=== PATIENT | female | born 1980 | race Caucasian/White ===

== ENCOUNTER 2018-07-09 19:27 | Observation (INO) | payer OTHER ==
[2018-07-09] MEDS ORDERED: SODIUM CHLORIDE 0.9% 1,000 ML IV STA ×2 (19:50)
[2018-07-09] MEDS ORDERED: LORazepam 1 MG TAB PO STA (19:50)
--- NOTE | 2018-07-09 19:53 | ED ---
SOB HPI - General Source: EMS, RN notes reviewed, old records reviewed Mode of arrival: EMS Limitations: no limitations - History of Present Illness MD Complaint: shortness of breath <Monserrat Iniguez - Last Filed: 07/09/18 23:01> <Silvia Rowley P - Last Filed: 07/10/18 03:08> - General Chief Complaint: Shortness of Breath Stated Complaint: Anxiety Time Seen by Provider: 07/09/18 19:32 - History of Present Illness Initial Comments: Jessa is a 37-year-old female who presents emergency department today with sudden onset of shortness of breath and heart racing. She has history of anxiety but is never had symptoms like this or a panic attack. Patient states that she feels like it's [place] is a deep breath. She is shaking. Patient states that she has never had any heart problems before. She denies any fevers or chills cough congestion. Patient reports symptoms started when she was sitting and watching TV. She denies any exacerbating symptoms. Patient denies family history of heart disease. (Monserrat Iniguez) - Related Data Home Medications Medication Instructions Recorded Confirmed No Known Home Medications 07/09/18 07/09/18 Allergies Allergy/AdvReac Type Severity Reaction Status Date / Time No Known Allergies Allergy Verified 07/09/18 19:50 Review of Systems ROS Other: All systems not noted in ROS Statement are negative. <Monserrat Iniguez - Last Filed: 07/09/18 23:01> ROS Other: All systems not noted in ROS Statement are negative. <Silvia Rowley P - Last Filed: 07/10/18 03:08> ROS Statement: Those systems with pertinent positive or pertinent negative responses have been documented in the HPI. Past Medical History Past Medical History: No Reported History History of Any Multi-Drug Resistant Organisms: None Reported Past Surgical History: Section Additional Past Surgical History / Comment(s): D&C. Past Psychological History: No Psychological Hx Reported Smoking Status: Current some day smoker Past Alcohol Use History: Occasional Past Drug Use History: None Reported <Monserrat Iniguez - Last Filed: 07/09/18 23:01> General Exam Limitations: no limitations General appearance: alert, in no apparent distress Head exam: Present: atraumatic, normocephalic, normal inspection Eye exam: Present: normal appearance, PERRL, EOMI. Absent: scleral icterus, c onjunctival injection, periorbital swelling ENT exam: Present: normal exam, mucous membranes moist Neck exam: Present: normal inspection. Absent: tenderness, meningismus, lymphadenopathy Respiratory exam: Present: normal lung sounds bilaterally. Absent: respiratory distress, wheezes, rales, rhonchi, stridor Cardiovascular Exam: Present: regular rate, normal rhythm, normal heart sounds. Absent: systolic murmur, diastolic murmur, rubs, gallop, clicks GI/Abdominal exam: Present: soft, normal bowel sounds. Absent: distended, tenderness, guarding, rebound, rigid Extremities exam: Present: normal inspection, full ROM, normal capillary refill. Absent: tenderness, pedal edema, joint swelling, calf tenderness Back exam: Present: normal inspection Neurological exam: Present: alert, oriented X3, CN II-XII intact Psychiatric exam: Present: normal affect, normal mood Skin exam: Present: warm, dry, intact, normal color. Absent: rash <Monserrat Iniguez - Last Filed: 07/09/18 23:01> - General Exam Comments Initial Comments: 37-year-old female. Alert and oriented. No distress. 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 ] Respiratory 26 H 32 H Rate Blood Pressure 147/99 O2 Sat by Pulse 100 Oximetry 07/09/18 07/09/18 07/10/18 22:00 22:19 02:51 Temperature 98.1 F Pulse Rate 124 H 120 H 97 Pulse Rate [ Offset [employer] Operator ] Respiratory 20 19 Rate Blood Pressure 131/90 131/93 O2 Sat by Pulse 98 100 Oximetry Medical Decision Making - Lab Data Result diagrams: 07/09/18 20:20 07/09/18 20:20 - Radiology Data Radiology results: report reviewed <Monserrat Iniguez - Last Filed: 07/09/18 23:01> - Lab Data Result diagrams: 07/09/18 20:20 07/09/18 20:20 <Silvia Rowley - Last Filed: 07/10/18 03:08> - Medical Decision Making Patient is a 37-year-old female who presents respiratory for evaluation for sudden onset of chest pain shortness of breath. Patient's EKG shows sinus tachycardia. While in the emergency department she continued of a high heart rate of 120 beats were minute minimum. EKG showed sinus tach cardiology as normal EKG. Her initial troponin is negative. She does complain of some discomfort in her chest as well. At this time her d-dimer did come back slightly elevated CT [place] chest was completed and negative for PE. There is evidence of a right-sided pleural reaction. She has no cough or other associated symptoms. I reevaluated the Patient after initial thinking is related to anxiety. She states that symptoms persist after 0.5 mg of Ativan. He also given Patient a breathing treatment helped him this would improve her symptoms. At this time Patient will be admitted for continued chest pain, tachycardia and will repeat peak troponin levels. All questions answered. (Monserrat Iniguez) I was available for consultation in the emergency department. The history and physical exam were done by the midlevel provider. I was consulted for this patient's care. I reviewed the case with the midlevel provider and based on their presentation of the patient, I agree with the assessment, medical decision making and plan of care as documented. Chart was dictated using [employer] dictation software. Attempts were made to correct any dictation errors however some typographical errors may persist. (Silvia Rowley) - Lab Data Lab Results 07/09/18 07/09/18 07/09/18 Range/Units 20:20 20:20 20:20 WBC 13.3 H (3.8-10.6) k/uL RBC 5.22 (3.80-5.40) m/uL Hgb 15.0 (11.4-16.0) gm/dL Hct 45.9 (34.0-46.0) % MCV 88.0 (80.0-100.0) fL MCH 28.7 (25.0-35.0) pg MCHC 32.6 (31.0-37.0) g/dL RDW 17.5 H (11.5-15.5) % Plt Count 370 (150-450) k/uL Neutrophils % 77 % Lymphocytes % 16 % Monocytes % 5 % Eosinophils % 1 % Basophils % 0 % Neutrophils # 10.3 H (1.3-7.7) k/uL Lymphocytes # 2.1 (1.0-4.8) k/uL Monocytes # 0.7 (0-1.0) k/uL Eosinophils # 0.1 (0-0.7) k/uL Basophils # 0.0 (0-0.2) k/uL Anisocytosis Slight PT 10.4 (9.0-12.0) sec INR 1.0 (<1.2) APTT 24.1 (22.0-30.0) sec D-Dimer 0.67 H (<0.60) mg/L FEU Sodium 141 (137-145) mmol/L Potassium 4.4 (3.5-5.1) mmol/L Chloride 108 H (98-107) mmol/L Carbon Dioxide 19 L (22-30) mmol/L Anion Gap 14 mmol/L BUN 11 (7-17) mg/dL Creatinine 0.69 (0.52-1.04) mg/dL Est GFR (CKD-EPI)AfAm >90 (>60 ml/min/1.73 sqM) Est GFR (CKD-EPI)NonAf >90 (>60 ml/min/1.73 sqM) Glucose 94 (74-99) mg/dL Calcium 11.1 H (8.4-10.2) mg/dL Magnesium 1.8 (1.6-2.3) mg/dL Total Bilirubin 1.0 (0.2-1.3) mg/dL AST 25 (14-36) U/L ALT 27 (9-52) U/L Alkaline Phosphatase 94 (38-126) U/L Troponin I (0.000-0.034) ng/mL Total Protein 8.5 H (6.3-8.2) g/dL Albumin 5.1 H (3.5-5.0) g/dL TSH (0.465-4.680) mIU/L HCG, Qual 07/09/18 07/09/18 Range/Units 20:20 20:20 WBC (3.8-10.6) k/uL RBC (3.80-5.40) m/uL Hgb (11.4-16.0) gm/dL Hct (34.0-46.0) % MCV (80.0-100.0) fL MCH (25.0-35.0) pg MCHC (31.0-37.0) g/dL RDW (11.5-15.5) % Plt Count (150-450) k/uL Neutrophils % % Lymphocytes % % Monocytes % % Eosinophils % % Basophils % % Neutrophils # (1.3-7.7) k/uL Lymphocytes # (1.0-4.8) k/uL Monocytes # (0-1.0) k/uL Eosinophils # (0-0.7) k/uL Basophils # (0-0.2) k/uL Anisocytosis PT (9.0-12.0) sec INR (<1.2) APTT (22.0-30.0) sec D-Dimer (<0.60) mg/L FEU Sodium (137-145) mmol/L Potassium (3.5-5.1) mmol/L Chloride (98-107) mmol/L Carbon Dioxide (22-30) mmol/L Anion Gap mmol/L BUN (7-17) mg/dL Creatinine (0.52-1.04) mg/dL Est GFR (CKD-EPI)AfAm (>60 ml/min/1.73 sqM) Est GFR (CKD-EPI)NonAf (>60 ml/min/1.73 sqM) Glucose (74-99) mg/dL Calcium (8.4-10.2) mg/dL Magnesium (1.6-2.3) mg/dL Total Bilirubin (0.2-1.3) mg/dL AST (14-36) U/L ALT (9-52) U/L Alkaline Phosphatase (38-126) U/L Troponin I <0.012 (0.000-0.034) ng/mL Total Protein (6.3-8.2) g/dL Albumin (3.5-5.0) g/dL TSH 3.820 (0.465-4.680) mIU/L HCG, Qual Not Detected - Radiology Data CT shows no evidence of pulmonary embolism, minimal pleural reaction at the ri t posterior lung base. (Monserrat Iniguez) Disposition Is patient prescribed a controlled substance at d/c from ED?: No Time of Disposition: 23:04 <Monserrat Iniguez - Last Filed: 07/09/18 23:01> <Silvia Rowley P - Last Filed: 07/10/18 03:08> Clinical Impression: Chest pain, Tachycardia, Shortness of breath at rest Disposition: ADMITTED IP TO THIS [facility] Condition: Stable
[2018-07-09 20:51] LABS: Anisocytosis Slight; Basophils % (A) 0 %; Eosinophils # (A) 0.1 k/uL (0-0.7); Eosinophils % (A) 1 %; HCT 45.9 % (34.0-46.0); Lymphocytes # (A) 2.1 k/uL (1.0-4.8); Lymphocytes % (A) 16 %; MCH 28.7 pg (25.0-35.0); MCHC 32.6 g/dL (31.0-37.0); Mean Platelet Volume 6.8; Monocytes # (A) 0.7 k/uL (0-1.0); Monocytes % (A) 5 %; Neutrophils # (A) 10.3 k/uL (1.3-7.7); Neutrophils % (A) 77 %; Platelet Count 370 k/uL (150-450); RBC 5.22 m/uL (3.80-5.40); RDW 17.5 % (11.5-15.5); WBC 13.3 k/uL (3.8-10.6)
--- NOTE | 2018-07-09 20:58 | XR ---
EXAMINATION TYPE: XR chest 2V DATE OF EXAM: 07/09/2018 COMPARISON: NONE HISTORY: Chest pain TECHNIQUE: Frontal and lateral views of the chest are obtained. FINDINGS: Heart and mediastinum are normal. Lungs are clear. Diaphragm is normal. There are chest le ads. Bony thorax is intact. IMPRESSION: Normal chest.
[2018-07-09 21:05] LABS: ALT 27 U/L (9-52); AST 25 U/L (14-36); Albumin 5.1 g/dL (3.5-5.0); Alkaline Phosphatase 94 U/L (38-126); Anion Gap 14 mmol/L; Blood Urea Nitrogen 11 mg/dL (7-17); Calcium 11.1 mg/dL (8.4-10.2); Carbon Dioxide 19 mmol/L (22-30); Chloride 108 mmol/L (98-107); Glucose 94 mg/dL (74-99); Magnesium 1.8 mg/dL (1.6-2.3); Potassium 4.4 mmol/L (3.5-5.1); Sodium 141 mmol/L (137-145); Total Protein 8.5 g/dL (6.3-8.2)
[2018-07-09 21:06] LABS: Partial Thromboplastin Time 24.1 sec (22.0-30.0); Prothrombin Time 10.4 sec (9.0-12.0)
[2018-07-09 21:22] LABS: D-Dimer 0.67 mg/L FEU (<0.60)
[2018-07-09] MEDS ORDERED: IPRATROPIUM-ALBUTEROL 3 ML NEB INHALATION STA (21:42)
--- NOTE | 2018-07-09 22:00 | CT ---
EXAMINATION TYPE: CT chest angio for PE DATE OF EXAM: 07/09/2018 COMPARISON: None HISTORY: Shortness of breath. CT DLP: 299.9 mGycm Automated exposure control for dose reduction was used. CONTRAST: CT Chest for pulmonary embolism performed with with IV Contrast, patient injected with 74ml mL of Iso mil 370. There are 3-D post processed images. FINDINGS: The lungs are clear of consolidation. There is minimal pleural reaction and subsegmental atelectasis in the posterior right lower lobe. There is no evidence of a pulmonary mass. There is no mediastinal adenopathy. There are no hilar masses. Heart size is normal. There is normal contrast opacification of the pulmonary arteries. There are no filling defects. The b leydi thorax is intact. IMPRESSION: No evidence of pulmonary embolism. Minimal pleural reaction at the right posterior lung base.
[2018-07-09] MEDS ORDERED: SODIUM CHLORIDE 0.9% 1,000 ML IV ONE (22:06)
[2018-07-09] MEDS ORDERED: MORPHINE SULFATE 4 MG/ML SYRINGE IVP STA (22:57)
[2018-07-09] MEDS ORDERED: ASPIRIN 325 MG TAB PO STA (22:57)
[2018-07-09] MEDS ORDERED: NITROGLYCERIN SL TABS 0.4 MG TAB SUBLINGUAL STA (22:57)
[2018-07-09] MEDS ORDERED: HEPARIN SODIUM,PORCINE 5,000 UNIT/ML 1 ML VIAL IV ONE (23:04)
[2018-07-09] MEDS ORDERED: MORPHINE SULFATE 4 MG/ML SYRINGE IV PRN (23:04)
[2018-07-09] MEDS ORDERED: NITROGLYCERIN SL TABS 0.4 MG TAB SUBLINGUAL PRN (23:04)
[2018-07-09] MEDS ORDERED: HEPARIN SOD,PORK IN 0.45% NACL 25,000 UNIT in 0.45% NACL 1 250ML.BAG IV SCH (23:15)
[2018-07-10 00:17] LABS: HCG,Qualitative Serum Not Detected
[2018-07-10 00:28] LABS: Appearance,Urine Clear (Clear); Bilirubin,Urine Negative (Negative); Blood,Urine Negative (Negative); Color,Urine Yellow; Glucose,Urine (UA) Negative (Negative); Ketones,Urine 2+ (Negative); Leukocyte Esterase,Urine Negative (Negative); Nitrite,Urine Negative (Negative); Protein,Urine Negative (Negative); Urobilinogen,Urine <2.0 mg/dL (<2.0)
[2018-07-10 00:35] LABS: Specific Gravity,Urine >1.050 (1.001-1.035)
[2018-07-10] MEDS ORDERED: LORazepam 1 MG TAB PO STA (02:57)
[2018-07-10 03:39] LABS: Cholesterol 132 mg/dL (<200); HDL Cholesterol 56 mg/dL (40-60); LDL Cholesterol,Calculated 67 mg/dL (0-99); Triglycerides 43 mg/dL (<150)
[2018-07-10] MEDS ORDERED: METOPROLOL TARTRATE 25 MG TAB PO SCH (09:00)
[2018-07-10] MEDS ORDERED: ASPIRIN 325 MG TAB PO SCH (09:00)
[2018-07-10] MEDS ORDERED: HEPARIN SODIUM,PORCINE 5,000 UNIT/ML 1 ML VIAL IV STA (09:58)
[2018-07-10 12:15] VITALS: BP 125/85; PULSE 95; RESP 18; TEMP 97.6
--- NOTE | 2018-07-10 13:52 | P.CRDCN ---
History of Present Illness History of present illness: This is a pleasant 37 showed female with no significant past medical history. She does unfortunately smoke daily. She denies history of coronary artery disease, hypertension, dyslipidemia or diabetes mellitus. We've been asked to see her in consultation for symptoms of chest discomfort and palpitations. She states yesterday evening around 4:00 she was sitting on the couch watching television when she started feeling a heavy sensation in the midsternal region associated with palpitations and shortness of breath. She states it felt like her heart was racing out of her chest. This persisted for approximately 30 minutes and just she decided to call EMS. Upon arrival to the emergency department she was having ongoing heavy sensation in the chest associated with palpitations and shortness of breath. EKG obtained on arrival revealed sinus tachycardia with a heart rate in the 130-40 range. There is no acute ST or T wave abnormalities noted. Ultimately after couple of hours her symptoms subsided on their own. She is seen and examined resting comfortably in bed in no acute distress. She states she's had no further symptoms of palpitations, shortness of breath or chest heaviness since arriving at the hospital. She does state she is under significant amount of stress at home taking care of of her ill mother. Chest x-ray is negative for an acute cardiopulmonary process. CTA chest is negative for pulmonary embolism with minimal pleural reaction at the right posterior lung base. Laboratory data reviewed, WBC 13.3, hemoglobin 15, platelets 370, d-dimer 0.67, sodium 141, potassium 4.4, creatinine 0.69, magnesium 1.8, cardiac enzymes negative 3, TSH 3.82, LDL 67 and HDL 56. She takes no daily cardiac medications. At the time of my exam: CONSTITUTIONAL: Denies fever. Denies chills. EYES: Denies blurred vision. Denies vision changes. Denies eye pain. EARS, NOSE, MOUTH & THROAT: Denies headache. Denies sore throat. Denies ear pain. CARDIOVASCULAR: Denies chest pain. Denies shortness of breath. Denies orthopnea. Denies PND. Denies palpitations. RESPIRATORY: Denies cough. GASTROINTESTINAL: Denies abdominal pain. Denies diarrhea. Denies constipation. Denies nausea. Denies vomiting. MUSCULOSKELETAL: Denies myalgias. INTEGUMENTARY: Denies pruitis. Denies rash. NEUROLOGIC: Denies numbness. Denies tingling. Denies weakness. PSYCHIATRIC: Denies anxiety. Denies depression. ENDOCRINE: Denies fatigue. Denies weight change. Denies polydipsia. Denies polyurina. GENITOURINARY: Denies burning, hematuria or urgency with micturation. HEMATOLOGIC: Denies history of anemia. Denies bleeding. Blood pressure 125/85 heart rate 95 afebrile maintaining oxygen saturation on room air GENERAL: This is a 37-year-old female in no apparent distress at the time of my examination. HEENT: Head is atraumatic, normocephalic. Pupils are equal, round. Sclerae anicteric. Conjunctivae are clear. Mucous membranes of the mouth are moist. Neck is supple. There is no jugular venous distention. No carotid bruit is heard. LUNGS: Clear to auscultation no wheezes, rales or rhonchi. No chest wall tenderness is noted on palpation or with deep breathing. HEART: Regular rate and rhythm without murmurs, rubs or gallops. S1 and S2 heard. ABDOMEN: Soft, nontender. Bowel sounds are heard. No organomegaly noted. EXTREMITIES: No evidence of peripheral edema and no calf tenderness noted. VASCULAR: Radial and dorsalis pedis pulses palpated, no evidence of clubbing. NEUROLOGIC: Patient is awake, alert and oriented x3. ASSESSMENT Chest pain, atypical for angina. Associated with palpitations noted sinus tachycardia on admission. Chronic nicotine dependence PLAN An acute coronary event has been ruled out. Telemetry tracings have been reviewed and reveal no evidence of an acute arrhythmia. Obtain 2-D echocardiogram and Doppler study to assess cardiac structure and function. Lengthy discussion had with the patient regarding stress testing and she would prefer to have this done as an outpatient once her life stressors have improved. Increase activity and ambulation in the halls. If echocardiogram is unremarkable and she has no further symptoms of chest discomfort with activity she may be discharged this evening. Follow-up in the office with Dr. Bruce in 2-3 weeks for outpatient stress testing. Thank you kindly for this consultation. Nurse Practitioner note has been reviewed, I agree with a documented findings and plan of care. Patient was seen and examined. Past Medical History Past Medical History: No Reported History History of Any Multi-Drug Resistant Organisms: None Reported Past Surgical History: Section Additional Past Surgical History / Comment(s): D&C. Past Anesthesia/Blood Transfusion Reactions: No Reported Reaction Past Psychological History: No Psychological Hx Reported Smoking Status: Current some day smoker Past Alcohol Use History: Occasional Past Drug Use History: None Reported Medications and Allergies Home Medications Medication Instructions Recorded Confirmed Type No Known Home Medications 07/09/18 07/09/18 History Allergies Allergy/AdvReac Type Severity Reaction Status Date / Time No Known Allergies Allergy Verified 07/09/18 19:50 Physical Exam Vitals: Vital Signs Temp Pulse Pulse Pulse Resp BP BP 07/10/18 12:00 95 18 07/10/18 11:24 97.6 F 95 18 125/85 07/10/18 11:00 100 19 120/79 07/10/18 10:30 90 15 134/83 07/10/18 10:00 91 18 123/89 07/10/18 09:30 93 16 129/91 07/10/18 09:00 93 12 128/90 07/10/18 07:15 103 H 18 129/98 07/10/18 04:16 100 18 07/10/18 02:51 98.1 F 97 19 131/93 07/09/18 22:19 120 H 20 131/90 07/09/18 22:00 124 H 07/09/18 21:50 118 H 07/09/18 19:35 124 H 32 H 07/09/18 19:34 98.6 F 116 H 26 H 147/99 Pulse Ox 07/10/18 12:00 07/10/18 11:24 98 07/10/18 11:00 97 07/10/18 10:30 96 07/10/18 10:00 96 07/10/18 09:30 97 07/10/18 09:00 98 07/10/18 07:15 98 07/10/18 04:16 07/10/18 02:51 100 07/09/18 22:19 98 07/09/18 22:00 07/09/18 21:50 07/09/18 19:35 07/09/18 19:34 100 Intake and Output 07/09/18 07/10/18 07/10/18 22:59 06:59 14:59 Intake Total 212.347 Balance 212.347 Intake: Intake, IV Titration 94.347 Amount Heparin Sod,Pork in 0.45% 94.347 NaCl 25,000 unit In 0.45 % NaCl 1 250ml.bag @ 12 UNITS/KG/HR 8.709 mls/hr IV .Q24H [facility] Rx#: [id number] Oral 118 Other: Voiding Method Toilet Weight 72.575 kg Results 07/09/18 20:20 07/09/18 20:20 Cardiac Enzymes 07/09/18 07/09/18 07/10/18 Range/Units 20:20 20:20 02:41 AST 25 (14-36) U/L Troponin I <0.012 <0.012 (0.000-0.034) ng/mL 07/10/18 Range/Units 08:19 AST (14-36) U/L Troponin I <0.012 (0.000-0.034) ng/mL Coagulation 07/09/18 07/10/18 Range/Units 20:20 08:19 PT 10.4 (9.0-12.0) sec APTT 24.1 40.2 H (22.0-30.0) sec Lipids 07/10/18 Range/Units 02:41 Triglycerides 43 (<150) mg/dL Cholesterol 132 (<200) mg/dL HDL Cholesterol 56 (40-60) mg/dL CBC 07/09/18 Range/Units 20:20 WBC 13.3 H (3.8-10.6) k/uL RBC 5.22 (3.80-5.40) m/uL Hgb 15.0 (11.4-16.0) gm/dL Hct 45.9 (34.0-46.0) % Plt Count 370 (150-450) k/uL Comprehensive Metabolic Panel 07/09/18 Range/Units 20:20 Sodium 141 (137-145) mmol/L Potassium 4.4 (3.5-5.1) mmol/L Chloride 108 H (98-107) mmol/L Carbon Dioxide 19 L (22-30) mmol/L BUN 11 (7-17) mg/dL Creatinine 0.69 (0.52-1.04) mg/dL Glucose 94 (74-99) mg/dL Calcium 11.1 H (8.4-10.2) mg/dL AST 25 (14-36) U/L ALT 27 (9-52) U/L Alkaline Phosphatase 94 (38-126) U/L Total Protein 8.5 H (6.3-8.2) g/dL Albumin 5.1 H (3.5-5.0) g/dL Current Medications Generic Name Dose Route Start Last Admin Trade Name Freq PRN Reason Stop Dose Admin Metoprolol Tartrate 25 mg 07/10/18 09:00 07/10/18 10:01 Lopressor PO 25 mg BID DAVID Administration Morphine Sulfate 4 mg 07/09/18 23:04 07/10/18 03:05 Morphine Sulfate (Inj) IV 4 mg Q5M PRN Administration Chest Pain Nitroglycerin 0.4 mg 07/09/18 23:04 Nitrostat SUBLINGUAL Q5M PRN Chest Pain Intake and Output 07/09/18 07/10/18 07/10/18 22:59 06:59 14:59 Intake Total 212.347 Balance 212.347 Intake: Intake, IV Titration 94.347 Amount Heparin Sod,Pork in 0.45% 94.347 NaCl 25,000 unit In 0.45 % NaCl 1 250ml.bag @ 12 UNITS/KG/HR 8.709 mls/hr IV .Q24H [facility] Rx#: [id number] Oral 118 Other: Voiding Method Toilet Weight 72.575 kg 07/09/18 20:20 07/09/18 20:20
--- NOTE | 2018-07-10 15:50 | P.HPIM ---
History of Present Illness H&P Date: 07/10/18 Chief Complaint: Chest tightness Patient is a 37 old female without significant past history and nicotine addiction came to ER with the complaints of shortness of breath and could not catch her breath. Patient has been having anxiety and never had symptoms like this before. Patient says that yesterday evening around 4 PM patient was sitting on the couch and watching television and suddenly felt chest heaviness, mainly left retrosternal and associates with shortness of breath and palpitations. Patient says that her heart was racing fast and the time and is about to pass out. Symptoms lasted about one half hour. EMS was called and patient was brought to the hospital emergency room. Patient otherwise denied any cough or sputum production. Denied any recent illnesses or sick contacts. No complains of chest pain. No headache or dizziness or lightheadedness. No diaphoresis. No prior history of heart disease. EKG showed sinus tachycardia with no ST-T wave abnormalities. Troponin [address] angiogram of the chest showed no evidence of pulmonary embolism. Minimal pleural reaction at the right posterior lung base. D-dimer 0.67 Hemoglobin 15.0 , RBC 13.3, UA negative for infection. TSH 3.82, within normal limits. Review of Systems Constitutional: Patient denies any fever or chills . No generalized weakness or weight loss. Abdomen: Patient denied nausea vomiting and diarrhea and abdominal pain. Cardiovascular: Chest tightness and heart racing of fast along with. Respiratory: patient denied any cough is from production. No shortness of breath Neurologic: Patient denied any numbness or tingling headache. Musculoskeletal: Patient denies any complaints of joint swelling or deformity. Skin: Negative Psychiatric: Negative Endocrine: No heat or cold intolerance. No recent weight gain. Genitourinary: No dysuria or hematuria. All other 14 point ROS negative except the above Past Medical History Past Medical History: No Reported History History of Any Multi-Drug Resistant Organisms: None Reported Past Surgical History: Section Additional Past Surgical History / Comment(s): D&C. Past Anesthesia/Blood Transfusion Reactions: No Reported Reaction Past Psychological History: No Psychological Hx Reported Smoking Status: Current some day smoker Past Alcohol Use History: Occasional Past Drug Use History: None Reported Medications and Allergies Home Medications Medication Instructions Recorded Confirmed Type Metoprolol Tartrate [Lopressor] 25 mg PO BID #60 tab 07/10/18 Rx Allergies Allergy/AdvReac Type Severity Reaction Status Date / Time No Known Allergies Allergy Verified 07/09/18 19:50 Physical Exam Vitals: Vital Signs Temp Pulse Pulse Pulse Resp BP BP 07/10/18 12:00 95 18 07/10/18 11:24 97.6 F 95 18 125/85 07/10/18 11:00 100 19 120/79 07/10/18 10:30 90 15 134/83 07/10/18 10:00 91 18 123/89 07/10/18 09:30 93 16 129/91 07/10/18 09:00 93 12 128/90 07/10/18 07:15 103 H 18 129/98 07/10/18 04:16 100 18 07/10/18 02:51 98.1 F 97 19 131/93 07/09/18 22:19 120 H 20 131/90 07/09/18 22:00 124 H 07/09/18 21:50 118 H 07/09/18 19:35 124 H 32 H 07/09/18 19:34 98.6 F 116 H 26 H 147/99 Pulse Ox 07/10/18 12:00 07/10/18 11:24 98 07/10/18 11:00 97 07/10/18 10:30 96 07/10/18 10:00 96 07/10/18 09:30 97 07/10/18 09:00 98 07/10/18 07:15 98 07/10/18 04:16 07/10/18 02:51 100 07/09/18 22:19 98 07/09/18 22:00 07/09/18 21:50 07/09/18 19:35 07/09/18 19:34 100 Intake and Output 07/09/18 07/10/18 07/10/18 22:59 06:59 14:59 Intake Total 212.347 Balance 212.347 Intake: Intake, IV Titration 94.347 Amount Heparin Sod,Pork in 0.45% 94.347 NaCl 25,000 unit In 0.45 % NaCl 1 250ml.bag @ 12 UNITS/KG/HR 8.709 mls/hr IV .Q24H [facility] Rx#: [id number] Oral 118 Other: Voiding Method Toilet Weight 72.575 kg PHYSICAL EXAMINATION: Patient is lying in the bed comfortably, no acute distress, awake alert and oriented.. HEENT: Normocephalic. Neck is supple. Pupils reactive. Nostrils clear. Oral cavity is moist. Ears reveal no drainage. Neck reveals no JVD, carotid bruits, or thyromegaly. CHEST EXAMINATION: Trachea is central. Symmetrical expansion. Lung mcgovern clear to auscultation and percussion. CARDIAC: Normal S1, S2 with no gallops. No murmurs ABDOMEN: Soft. Bowel sounds normal. No organomegaly. No abdominal bruits. Extremities: reveal no edema. No clubbing or cyanosis Neurologically awake, alert, oriented x3 with well-coordinated movements. No focal deficits noted Skin: No rash or skin lesions. Psychiatric: Coperative. Nonsuicidal Musculoskeletal: No joint swelling or deformity. Normal range of motion. Results CBC & Chem 7: 07/09/18 20:20 07/09/18 20:20 Labs: Abnormal Lab Results - Last 24 Hours (Table) 07/09/18 07/09/18 07/09/18 Range/Units 20:20 20:20 20:20 WBC 13.3 H (3.8-10.6) k/uL RDW 17.5 H (11.5-15.5) % Neutrophils # 10.3 H (1.3-7.7) k/uL APTT (22.0-30.0) sec D-Dimer 0.67 H (<0.60) mg/L FEU Chloride 108 H (98-107) mmol/L Carbon Dioxide 19 L (22-30) mmol/L Calcium 11.1 H (8.4-10.2) mg/dL Total Protein 8.5 H (6.3-8.2) g/dL Albumin 5.1 H (3.5-5.0) g/dL Ur Specific [place] (1.001-1.035) Urine Ketones (Negative) 07/09/18 07/10/18 Range/Units 23:45 08:19 WBC (3.8-10.6) k/uL RDW (11.5-15.5) % Neutrophils # (1.3-7.7) k/uL APTT 40.2 H (22.0-30.0) sec D-Dimer (<0.60) mg/L FEU Chloride (98-107) mmol/L Carbon Dioxide (22-30) mmol/L Calcium (8.4-10.2) mg/dL Total Protein (6.3-8.2) g/dL Albumin (3.5-5.0) g/dL Ur Specific [place] >1.050 H (1.001-1.035) Urine Ketones 2+ H (Negative) Thrombosis Risk Factor Assmnt - DVT/VTE Prophylaxis DVT/VTE Prophylaxis: Pharmacologic Prophylaxis ordered - Choose All That Apply Any of the Below Risk Factors Present?: Yes Each Factor Represents 1 point: Obesity (BMI >25) Other Risk Factors: No Thrombosis Risk Factor Assessment Total Risk Factor Score: 1 Thrombosis Risk Factor Assessment Level: Low Risk Assessment and Plan Assessment: Atypical chest pain. Ruled out ACS. Chest tightness and shortness of breath likely due to anxiety/panic attack Slightly elevated d-dimer. CT angiogram is negative for any pulmonary embolism Chronic ongoing nicotine addiction DVT prophylaxis with early ambulation Plan: Patient will be continued on telemetry monitoring. Serial EKGs and troponins negative. Thyroid function test is within normal limits. No evidence of pulmonary embolism. Patient is being continued IV hydration and was started on metoprolol 25 mg twice daily. Cardiology has seen the patient. 2-D echocardiogram was ordered. Patient was recommended to follow with cs associate office for outpatient stress testing. Further recommendations based on the clinical course. Smoking cessation has been counseled extensively. Time with Patient: Greater than 30
--- NOTE | 2018-07-10 18:32 | ECHOF ---
Referral Reason:cp MEASUREMENTS -------- HEIGHT: 170.2 cm WEIGHT: 72.6 kg BP: 115/76 RVIDd: 2.7 cm (< 3.3) IVSd: 0.8 cm (0.6 - 1.1) LVIDd: 4.7 cm (3.9 - 5.3) LVPWd: 0.9 cm (0.6 - 1.1) IVSs: 1.5 cm LVIDs: 3.1 cm LVPWs: 1.4 cm LA Diam: 3.3 cm (2.7 - 3.8) LAESV Index (A-L): 25.98 ml/m Ao Diam: 3.4 cm (2.0 - 3.7) AV Cusp: 2.2 cm (1.5 - 2.6) MV EXCURSION: 20.043 mm (> 18.000) MV EF SLOPE: 143 mm/s (70 - 150) EPSS: 0.3 cm RAP: 5.00 mmHg RVSP: 19.00 mmHg FINDINGS -------- Sinus rhythm. This was a technically good study. The left ventricular size is normal. Left ventricular wall thickness is normal. Overall left vent ricular systolic function is normal with, an EF between 60 - 65 %. The right ventricle is normal in size. Normal LA size by volume 22+/-6 ml/m2. The right atrium is normal in size. The aortic valve is trileaflet and appears structurally normal. The mitral valve is normal. Mild tricuspid regurgitation present. Right ventricular systolic pressure is normal at < 35 mmHg. There is no pulmonic regurgitation present. The aortic root size is normal. Normal inferior vena cava with normal inspiratory collapse consistent with estimated right atrial pre ssure of 5 mmHg. There is no pericardial effusion. CONCLUSIONS -------- 1. Sinus rhythm. 2. This was a technically good study. 3. The left ventricular size is normal. 4. Left ventricular wall thickness is normal. 5. Overall left ventricular systolic function is normal with, an EF between 60 - 65 %. 6. The right ventricle is normal in size. 7. Normal LA size by volume 22+/-6 ml/m2. 8. The right atrium is normal in size. 9. The aortic valve is trileaflet and appears structurally normal. 10. The mitral valve is normal. 11. Mild tricuspid regurgitation present. 12. Right ventricular systolic pressure is normal at < 35 mmHg. 13. There is no pulmonic regurgitation present. 14. The aortic root size is normal. 15. Normal inferior vena cava with normal inspiratory collapse consistent with estimated right atrial pressure of 5 mmHg. 16. There is no pericardial effusion. SUPERVISOR COMMUNICATIONS AND SIGNALS: Maame Martínez RDCS
== END 2018-07-10 18:55 | disposition home or self-care (01) ==
LOC: EC 19:27 → 1SOBS 23:18
PROVIDERS: ADMIT Hospitalist; ATTEND Hospitalist
DX: R07.89 Other chest pain (principal); R00.0 Tachycardia, unspecified; R06.02 Shortness of breath; F17.200 Nicotine dependence, unspecified, uncomplicated; R79.89 Other specified abnormal findings of blood chemistry; Z71.6 Tobacco abuse counseling; Z79.899 Other long term (current) drug therapy
CPT/HCPCS: 96366 ×2; 96376 ×2; 96361; 96365; 96375; 99285; 36415; 94640; 93005; 93306; 85379; 80061; 80053; 84443; 83735; 84484 ×2; 85025; 85610; 85730 ×2; 81003; 84703; 71046; 71275; G0378 ×2; J2270 ×2; J1644 ×3; Q9967

== ENCOUNTER 2019-07-09 10:56 | Observation (INO) | payer OTHER ==
[2019-07-09] MEDS ORDERED: PIPERACILLIN-TAZOBACTAM 3.375 GM in SODIUM CHLORIDE 0.9% 100 ML IVPB STA (11:03)
[2019-07-09] MEDS ORDERED: MORPHINE SULFATE 4 MG/ML SYRINGE IVP PRN (11:11)
--- NOTE | 2019-07-09 11:14 | ED ---
General Adult HPI - General Chief complaint: Abdominal Pain Stated complaint: extreme pain right quadrant Time Seen by Provider: 07/09/19 11:03 Source: patient Mode of arrival: ambulatory Limitations: no limitations - History of Present Illness Initial comments: Dictation was produced using [employer] dictation software. please excuse any grammatical, word or spelling errors. This patient was cared for during a federal and state declared state of e mergency secondary to Covid 19 Chief Complaint: 38-year-old female with no serious past medical history presents with fever and right lower quadrant pain. History of Present Illness: Is a 38-year-old female she has no significant past medical history. She is had, pain for the past 72 hours. Patient states her pain is in the right lower quadrant. She does complain of some nausea. No vomiting. No diarrhea. States that the pain is severe radiating to her right lower back. She also has been complaining of fevers. She has history of hernia and section. Denies any vaginal discharge. She has history of bilateral tubal ligation The ROS documented in this emergency department record has been reviewed and confirmed by me. Those systems with pertinent positive or negative responses have been documented in the HPI. All other systems are other negative and/or noncontributory. PHYSICAL EXAM: General Impression: Alert and oriented x3, acute distress secondary to pain HEENT: Normocephalic atraumatic, extra-ocular movements intact, pupils equal and reactive to light bilaterally, mucous membranes moist. Cardiovascular: Heart regular rate and rhythm Chest: Able to complete full sentences, no retractions, no tachypnea Abdomen: abdomen soft, non-tender, non-distended, no organomegaly Musculoskeletal: Pulses present and equal in all extremities, no peripheral sofy ma Motor: no focal deficits noted Neurological: CN II-XII grossly intact, no focal motor or sensory deficits noted Skin: Intact with no visualized rashes Psych: Normal affect and mood ED course: 38-year-old female with no significant past medical history presents with right lower quadrant abdominal pain. Patient appears to be in acute distress. Vital signs upon arrival shows temperature 101, heart rate of 127, rest of vital signs within acceptable limits. Laboratory evaluation obtained. No leukocytosis. CBC is unremarkable. Coag panel is negative. Metabolic panel is unremarkable. Urinalysis shows 54 white blood cells, 56 red blood cells however there are 29th squamous epithelial raheem ls. Computed tomography scan of the abdomen and pelvis was obtained. There are findings of acute appendicitis, perhaps imaging studies to suggest pyelonephritis. There are also incidental findings seen on the liver. There is also heterogeneity seen in the uterus which is likely incidental. Discussed patient case with Dr. ramsey, on-call general surgeon who will review the films. Patient started on Zosyn. Clinically speaking patient's symptoms are suggestive more of acute appendicitis. She does not have any CVA tenderness or urinary symptoms. Dr. Ramsey called back and requested patient be admitted to medicine considering multiple findings seen on her CT studies. He will however take patient to the operating room today. Discussed patient case with Dr. Ewing who is willing to accept patient's care. Gynecology was consulted. - Related Data Previous Rx's Medication Instructions Recorded Metoprolol Tartrate [Lopressor] 25 mg PO BID #60 tab 07/10/18 Allergies Allergy/AdvReac Type Severity Reaction Status Date / Time No Known Allergies Allergy Verified 07/09/19 11:02 Review of Systems ROS Statement: Those systems with pertinent positive or pertinent negative responses have been documented in the HPI. ROS Other: All systems not noted in ROS Statement are negative. Past Medical History Past Medical History: No Reported History History of Any Multi-Drug Resistant Organisms: None Reported Past Surgical History: Section Additional Past Surgical History / Comment(s): D&C. Past Anesthesia/Blood Transfusion Reactions: No Reported Reaction Past Psychological History: No Psychological Hx Reported Smoking Status: Current some day smoker Past Alcohol Use History: Occasional Past Drug Use History: None Reported General Exam Limitations: no limitations Course Vital Signs 07/09/19 07/09/19 07/09/19 10:58 11:55 12:00 Temperature 101 F H Pulse Rate 127 H 88 Respiratory 18 20 Rate Blood Pressure 121/77 120/82 120/82 O2 Sat by Pulse 98 99 Oximetry 07/09/19 12:07 Temperature Pulse Rate Respiratory 20 Rate Blood Pressure O2 Sat by Pulse Oximetry Medical Decision Making - Lab Data Result diagrams: 07/09/19 11:14 07/09/19 11:14 Lab Results 07/09/19 07/09/19 07/09/19 Range/Units 11:14 11:14 11:14 WBC 9.0 (3.8-10.6) k/uL RBC 4.68 (3.80-5.40) m/uL Hgb 12.1 (11.4-16.0) gm/dL Hct 38.8 (34.0-46.0) % MCV 83.0 (80.0-100.0) fL MCH 26.0 (25.0-35.0) pg MCHC 31.3 (31.0-37.0) g/dL RDW 18.3 H (11.5-15.5) % Plt Count 208 (150-450) k/uL Neutrophils % 77 % Lymphocytes % 9 % Monocytes % 10 % Eosinophils % 1 % Basophils % 0 % Neutrophils # 6.9 (1.3-7.7) k/uL Lymphocytes # 0.8 L (1.0-4.8) k/uL Monocytes # 0.9 (0-1.0) k/uL Eosinophils # 0.1 (0-0.7) k/uL Basophils # 0.0 (0-0.2) k/uL Hypochromasia Slight Anisocytosis Slight Microcytosis Slight PT 9.7 (9.0-12.0) sec INR 0.9 (<1.2) APTT 27.0 (22.0-30.0) sec Sodium (137-145) mmol/L Potassium (3.5-5.1) mmol/L Chloride (98-107) mmol/L Carbon Dioxide (22-30) mmol/L Anion Gap mmol/L BUN (7-17) mg/dL Creatinine (0.52-1.04) mg/dL Est GFR (CKD-EPI)AfAm (>60 ml/min/1.73 sqM) Est GFR (CKD-EPI)NonAf (>60 ml/min/1.73 sqM) Glucose (74-99) mg/dL POC Glucose (mg/dL) (75-99) mg/dL POC Glu Marketing Program Coordinator ID Plasma Lactic Acid [place] (0.7-2.0) mmol/L Calcium (8.4-10.2) mg/dL Urine Color Yellow Urine Appearance Cloudy H (Clear) Urine pH 6.0 (5.0-8.0) Ur Specific [place] 1.021 (1.001-1.035) Urine Protein 1+ H (Negative) Urine Glucose (UA) Negative (Negative) Urine Ketones 1+ H (Negative) Urine Blood Moderate H (Negative) Urine Nitrite Negative (Negative) Urine Bilirubin Negative (Negative) Urine Urobilinogen <2.0 (<2.0) mg/dL Ur Leukocyte Esterase Moderate H (Negative) Urine RBC 56 H (0-5) /hpf Urine WBC 54 H (0-5) /hpf Ur Squamous Epith Cells 29 H (0-4) /hpf Urine Bacteria Rare H (None) /hpf Urine Mucus Moderate H (None) /hpf 07/09/19 07/09/19 07/09/19 Range/Units 11:14 11:14 12:06 WBC (3.8-10.6) k/uL RBC (3.80-5.40) m/uL Hgb (11.4-16.0) gm/dL Hct (34.0-46.0) % MCV (80.0-100.0) fL MCH (25.0-35.0) pg MCHC (31.0-37.0) g/dL RDW (11.5-15.5) % Plt Count (150-450) k/uL Neutrophils % % Lymphocytes % % Monocytes % % Eosinophils % % Basophils % % Neutrophils # (1.3-7.7) k/uL Lymphocytes # (1.0-4.8) k/uL Monocytes # (0-1.0) k/uL Eosinophils # (0-0.7) k/uL Basophils # (0-0.2) k/uL Hypochromasia Anisocytosis Microcytosis PT (9.0-12.0) sec INR (<1.2) APTT (22.0-30.0) sec Sodium 136 L (137-145) mmol/L Potassium 3.7 (3.5-5.1) mmol/L Chloride 104 (98-107) mmol/L Carbon Dioxide 21 L (22-30) mmol/L Anion Gap 11 mmol/L BUN 10 (7-17) mg/dL Creatinine 0.71 (0.52-1.04) mg/dL Est GFR (CKD-EPI)AfAm >90 (>60 ml/min/1.73 sqM) Est GFR (CKD-EPI)NonAf >90 (>60 ml/min/1.73 sqM) Glucose 102 H (74-99) mg/dL POC Glucose (mg/dL) 94 (75-99) mg/dL POC Glu Marketing Program Coordinator ID Verena Huang Plasma Lactic Acid [place] 1.2 (0.7-2.0) mmol/L Calcium 9.1 (8.4-10.2) mg/dL Urine Color Urine Appearance (Clear) Urine pH (5.0-8.0) Ur Specific [place] (1.001-1.035) Urine Protein (Negative) Urine Glucose (UA) (Negative) Urine Ketones (Negative) Urine Blood (Negative) Urine Nitrite (Negative) Urine Bilirubin (Negative) Urine Urobilinogen (<2.0) mg/dL Ur Leukocyte Esterase (Negative) Urine RBC (0-5) /hpf Urine WBC (0-5) /hpf Ur Squamous Epith Cells (0-4) /hpf Urine Bacteria (None) /hpf Urine Mucus (None) /hpf Disposition Clinical Impression: Appendicitis Disposition: ADMITTED IP TO THIS [facility] Condition: Fair Referrals: Erik Kiser III, MD [Primary Care Provider] - 1-2 days Decision Time: 12:27
[2019-07-09] MEDS: ONDANSETRON 4 MG/2 ML VIAL IVP STA ×2 (11:16→18:11)
[2019-07-09 11:36] LABS: Anisocytosis Slight; Basophils % (A) 0 %; Eosinophils # (A) 0.1 k/uL (0-0.7); Eosinophils % (A) 1 %; HCT 38.8 % (34.0-46.0); HGB 12.1 gm/dL (11.4-16.0); Hypochromasia Slight; Lymphocytes # (A) 0.8 k/uL (1.0-4.8); Lymphocytes % (A) 9 %; MCHC 31.3 g/dL (31.0-37.0); Mean Platelet Volume 7.2; Microcytosis Slight; Monocytes # (A) 0.9 k/uL (0-1.0); Monocytes % (A) 10 %; Neutrophils # (A) 6.9 k/uL (1.3-7.7); Neutrophils % (A) 77 %; Platelet Count 208 k/uL (150-450); RBC 4.68 m/uL (3.80-5.40); RDW 18.3 % (11.5-15.5)
[2019-07-09] MEDS ORDERED: ACETAMINOPHEN TAB 500 MG TAB PO STA (11:41)
[2019-07-09 11:45] LABS: INR 0.9 (<1.2)
[2019-07-09 11:46] LABS: Prothrombin Time 9.7 sec (9.0-12.0)
[2019-07-09 11:53] LABS: Appearance,Urine Cloudy (Clear); Bacteria,Urine Rare /hpf; Bilirubin,Urine Negative (Negative); Blood,Urine Moderate (Negative); Color,Urine Yellow; Glucose,Urine (UA) Negative (Negative); Ketones,Urine 1+ (Negative); Leukocyte Esterase,Urine Moderate (Negative); Mucus,Urine Moderate /hpf; Nitrite,Urine Negative (Negative); Protein,Urine 1+ (Negative); RBC,Urine 56 /hpf (0-5); Specific Gravity,Urine 1.021 (1.001-1.035); Squamous Epithelial Cell,Urine 29 /hpf (0-4); Urobilinogen,Urine <2.0 mg/dL (<2.0); WBC,Urine 54 /hpf (0-5)
[2019-07-09 12:00] LABS: African American GFR (CKD) >90 (>60 ml/min/1.73 sqM); Anion Gap 11 mmol/L; Blood Urea Nitrogen 10 mg/dL (7-17); Calcium 9.1 mg/dL (8.4-10.2); Carbon Dioxide 21 mmol/L (22-30); Chloride 104 mmol/L (98-107); Glucose 102 mg/dL (74-99); Non-African American GFR(CKD) >90 (>60 ml/min/1.73 sqM); Potassium 3.7 mmol/L (3.5-5.1); Sodium 136 mmol/L (137-145)
[2019-07-09 12:08] LABS: Glucose,Whole Blood 94 mg/dL (75-99)
--- NOTE | 2019-07-09 12:12 | CT ---
EXAMINATION TYPE: CT abdomen pelvis w con DATE OF EXAM: 07/09/2019 HISTORY: RLQ pain CT DLP: 735mGycm Automated Exposure Control for Dose Reduction was Utilized. CONTRAST: CT scan of the abdomen and pelvis is performed with IV Contrast, patient injected with 100 mL of Isov ue 300. COMPARISON: CT dated 07/09/2018 of the chest FINDINGS: Performed contrast limits evaluation of the bowel. LUNG BASES: Pleural parenchymal scarring in the right lung base. LIVER/GB: There are 2 9 mm hepatic lesions in segment 8 the first arterial enhancing on image 8 and t he second hypointense with some nodular enhancement on image 10. These are not well seen on the prior CT given the angiographic phase of contrast on the prior. PANCREAS: No significant abnormality is seen. SPLEEN: No splenomegaly. ADRENALS: No significant abnormality is seen. KIDNEYS: Particularly on coronal image 51 and 52 inferior margin of the right kidney displays a stria earl nephrogram appearance. There is also delayed enhancement on the right in comparison to the left t hat is subtle. Minimal perinephric fat stranding on the right. 1.8 cm right lower pole renal cyst. BOWEL: A portion of the appendix is enlarged measuring 8 mm containing an appendicolith. No significa nt periappendiceal fat stranding at this time. No periappendiceal fluid collection to suggest abscess or pneumoperitoneum seen. UTERUS/ADNEXA: There is free fluid in the pelvis and heterogenous appearance of the retroverted uteru s. Cervix is not well delineated. Follicular and/or cystic changes the ovaries are present. LYMPH NODES: No greater than 1cm abdominal or pelvic lymph nodes are appreciated. OSSEOUS STRUCTURES: No significant abnormality is seen. OTHER: Subcutaneous soft tissue nodule of the left para midline pelvic subcutaneous tissues measures 1.2 x 1.3 cm and is indeterminate this time. IMPRESSION: 1. Findings suggest early developing acute appendicitis as there is dilatation of a portion of the ap pendix up to 8 mm and internal appendicolith in this patient with right lower quadrant pain. No pneum operitoneum or appendiceal abscess. Surgical consultation recommended. 2. Delayed enhancement of the right kidney and striated nephrogram suggesting right-sided pyelonephri tis. Findings 1 and 2 were discussed with Aristeo Oron[place] by Dr. Saul on 07/09/19 at 1209pm. 3. Subcutaneous nodule in the left lower abdomen is indeterminate. This can be seen in desmoid neopla sm, sequela prior trauma, endometrial implant, or prior scar. 4. Heterogeneity of the uterus and suboptimally visualized cervix with small amount of free pelvic fl uid. Adenomyosis or leiomyomatous are possible. Pelvic ultrasound is recommended as follow-up. The pr ed for emergent versus nonemergent pelvic ultrasound should be evaluated clinically. 5. There are 2 hepatic lesions that may represent hemangiomas. Follow-up abdominal ultrasound or MR l iver are recommended for further characterization.
[2019-07-09] MEDS ORDERED: MORPHINE SULFATE 4 MG/ML SYRINGE IV PRN (12:22)
[2019-07-09] MEDS ORDERED: NALOXONE 0.4 MG/ML 1 ML VIAL IV PRN ×2 (12:22→20:30)
[2019-07-09] MEDS: SODIUM CHLORIDE 0.9% 1,000 ML IV SCH ×2 (13:13→15:21)
--- NOTE | 2019-07-09 13:14 | P.HPIM ---
History of Present Illness 38-year-old the pleasant female came in with complaints of fever going on for about 4-5 days patient denied any cough shortness of breath. Patient starting having abdominal pain in the right lower quadrant and periorbital area which started today along with nausea vomiting. Patient's pain is severe in nature which improved now. Patient denied any dysuria denied any pain in the flanks. Patient had a computed tomography scan of the abdomen which showed fecalith well with appendicitis along with some changes consistent pyelonephritis in the right side. Patient urine is abnormal but contaminated urine sample patient doesn't have any CVA tenderness. Patient was started on Zosyn for surgery was the called the recommending surgical intervention in addition to general medicine. Review of Systems REVIEW OF SYSTEMS: CONSTITUTIONAL: No fever, no malaise, no fatigue. HEENT: No recent visual problems or hearing problems. Denied any sore throat. CARDIOVASCULAR: No chest pain, orthopnea, PND, no palpitations, no syncope. PULMONARY: No shortness of breath, no cough, no hemoptysis. GASTROINTESTINAL: As mentioned in HPI NEUROLOGICAL: No headaches, no weakness, no numbness. HEMATOLOGICAL: Denies any bleeding or petechiae. GENITOURINARY: Denies any burning micturition, frequency, or urgency. MUSCULOSKELETAL/RHEUMATOLOGICAL: Denies any joint pain, swelling, or any muscle pain. ENDOCRINE: Denies any polyuria or polydipsia. The rest of the 14-point review of systems is negative. Past Medical History Past Medical History: No Reported History History of Any Multi-Drug Resistant Organisms: None Reported Past Surgical History: Section Additional Past Surgical History / Comment(s): D&C. Past Anesthesia/Blood Transfusion Reactions: No Reported Reaction Past Psychological History: No Psychological Hx Reported Smoking Status: Current some day smoker Past Alcohol Use History: Occasional Past Drug Use History: None Reported Medications and Allergies Home Medications Medication Instructions Recorded Confirmed Type No Known Home Medications 07/09/19 07/09/19 History Allergies Allergy/AdvReac Type Severity Reaction Status Date / Time No Known Allergies Allergy Verified 07/09/19 12:33 Physical Exam Vitals: Vital Signs Temp Pulse Resp BP Pulse Ox 07/09/19 12:07 20 07/09/19 12:00 120/82 07/09/19 11:55 88 20 120/82 99 07/09/19 10:58 101 F H 127 H 18 121/77 98 Intake and Output 07/08/19 07/09/19 07/09/19 22:59 06:59 14:59 Other: Weight 63.503 kg PHYSICAL EXAMINATION: GENERAL: The patient is alert and oriented x3, not in any acute distress. Well developed, well nourished. HEENT: Pupils are round and equally reacting to light. EOMI. No scleral icterus. No conjunctival pallor. Normocephalic, atraumatic. No pharyngeal erythema. No thyromegaly. CARDIOVASCULAR: S1 and S2 present. No murmurs, rubs, or gallops. PULMONARY: Chest is clear to auscultation, no wheezing or crackles. ABDOMEN: Soft, tenderness in the right lower quadrant no rebound or rigidity. MUSCULOSKELETAL: No joint swelling or deformity. EXTREMITIES: No cyanosis, clubbing, or pedal edema. NEUROLOGICAL: Gross neurological examination did not reveal any focal deficits. SKIN: No rashes. Results CBC & Chem 7: 07/09/19 11:14 07/09/19 11:14 Labs: Abnormal Lab Results - Last 24 Hours (Table) 07/09/19 07/09/19 07/09/19 Range/Units 11:14 11:14 11:14 RDW 18.3 H (11.5-15.5) % Lymphocytes # 0.8 L (1.0-4.8) k/uL Sodium 136 L (137-145) mmol/L Carbon Dioxide 21 L (22-30) mmol/L Glucose 102 H (74-99) mg/dL Urine Appearance Cloudy H (Clear) Urine Protein 1+ H (Negative) Urine Ketones 1+ H (Negative) Urine Blood Moderate H (Negative) Ur Leukocyte Esterase Moderate H (Negative) Urine RBC 56 H (0-5) /hpf Urine WBC 54 H (0-5) /hpf Ur Squamous Epith Cells 29 H (0-4) /hpf Urine Bacteria Rare H (None) /hpf Urine Mucus Moderate H (None) /hpf Assessment and Plan Plan: -Right lower quadrant abdominal pain couple: Secondary to possible acute appendicitis patient will undergo surgical intervention. Patient urine is a contaminated urine sample because of which I cannot rule out a rule out. He at this time we'll repeat and the UA since patient is having her for fever for 5 days, even after appendectomy are good and continue antibiotics for total of 1 week lasting that she has UTI and polynephritis as well -Sepsis probably secondary to appendicitis and as mentioned above UTI cannot be completely ruled out and pyelonephritis cannot be ruled out. Zosyn will be continued -Tachycardia secondary to sepsis as mentioned above -Incidental findings of possible or adenomyosis, or fibroid Uterus can be eval uated further as an outpatient -Hemangioma of the liver which are pretty common in women of this age no further intervention at this time -DVT prophylaxis: Early ambulation GI prophylaxis Protonix
[2019-07-09] MEDS: PANTOPRAZOLE 40 MG/10 ML VIAL IVP SCH (13:47)
[2019-07-09 13:52] LABS: Appearance,Urine Clear (Clear); Bilirubin,Urine Negative (Negative); Blood,Urine Trace (Negative); Color,Urine Yellow; Glucose,Urine (UA) Negative (Negative); Ketones,Urine Negative (Negative); Leukocyte Esterase,Urine Negative (Negative); Mucus,Urine Rare /hpf; Nitrite,Urine Negative (Negative); PH, Urine 6.5 (5.0-8.0); Protein,Urine 1+ (Negative); RBC,Urine 3 /hpf (0-5); Squamous Epithelial Cell,Urine 7 /hpf (0-4); Urobilinogen,Urine <2.0 mg/dL (<2.0); WBC,Urine 4 /hpf (0-5)
[2019-07-09 13:53] LABS: Specific Gravity,Urine >1.050 (1.001-1.035)
[2019-07-09] MEDS ORDERED: SODIUM CHLORIDE 0.9% 1,000 ML IV ONE (17:29)
--- NOTE | 2019-07-09 18:02 | P.GSCN ---
History of Present Illness Consult date: 07/09/19 History of present illness: [id number] female with a 2 day history of abdominal pain. Started out in the mid abdomen and has now gone down the right lower quadrant. She's also had fevers as high as 101 over the last 2 days. She denies any cough she denies any upper respiratory symptoms. She's never had pain like this before. She has a history of a and tubal ligation. She has no other significant past medical history. She denies any nausea vomiting she has no appetite. She denies any blood in her stool. No other complaints at this time Past Medical History Past Medical History: No Reported History History of Any Multi-Drug Resistant Organisms: None Reported Past Surgical History: Section, Tubal Ligation Additional Past Surgical History / Comment(s): D&C. Past Anesthesia/Blood Transfusion Reactions: No Reported Reaction Past Psychological History: Depression Smoking Status: Former smoker Past Alcohol Use History: Occasional Past Drug Use History: None Reported - Past Family History Mother Additional Family Medical History / Comment(s): Lupus Medications and Allergies Home Medications Medication Instructions Recorded Confirmed Type No Known Home Medications 07/09/19 07/09/19 History Allergies Allergy/AdvReac Type Severity Reaction Status Date / Time No Known Allergies Allergy Verified 07/09/19 12:33 Surgical - Exam Osteopathic Statement: *. No significant issues noted on an osteopathic structu ral exam other than those noted in the History and Physical/Consult. Vital Signs Temp Pulse Resp BP Pulse Ox 101 F H 127 H 18 121/77 98 07/09/19 10:58 07/09/19 10:58 07/09/19 10:58 07/09/19 10:58 07/09/19 10:58 - General well developed, well nourished, no distress - Eyes PERRL - Neck trachea midline - Respiratory normal expansion, normal respiratory effort - Cardiovascular Rhythm: regular - Abdomen soft/ND TTP RLQ. no RRG - Neurologic normal coordination, normal sensation - Psychiatric oriented to time, oriented to person, oriented to place Results - Labs 07/09/19 11:14 07/09/19 11:14 Abnormal Lab Results - Last 24 Hours (Table) 07/09/19 07/09/19 07/09/19 Range/Units 11:14 11:14 11:14 RDW 18.3 H (11.5-15.5) % Lymphocytes # 0.8 L (1.0-4.8) k/uL Sodium 136 L (137-145) mmol/L Carbon Dioxide 21 L (22-30) mmol/L Glucose 102 H (74-99) mg/dL Urine Appearance Cloudy H (Clear) Ur Specific [place] (1.001-1.035) Urine Protein 1+ H (Negative) Urine Ketones 1+ H (Negative) Urine Blood Moderate H (Negative) Ur Leukocyte Esterase Moderate H (Negative) Urine RBC 56 H (0-5) /hpf Urine WBC 54 H (0-5) /hpf Ur Squamous Epith Cells 29 H (0-4) /hpf Urine Bacteria Rare H (None) /hpf Urine Mucus Moderate H (None) /hpf 07/09/19 Range/Units 13:18 RDW (11.5-15.5) % Lymphocytes # (1.0-4.8) k/uL Sodium (137-145) mmol/L Carbon Dioxide (22-30) mmol/L Glucose (74-99) mg/dL Urine Appearance (Clear) Ur Specific [place] >1.050 H (1.001-1.035) Urine Protein 1+ H (Negative) Urine Ketones (Negative) Urine Blood Trace H (Negative) Ur Leukocyte Esterase (Negative) Urine RBC (0-5) /hpf Urine WBC (0-5) /hpf Ur Squamous Epith Cells 7 H (0-4) /hpf Urine Bacteria (None) /hpf Urine Mucus Rare H (None) /hpf Diabetes panel 07/09/19 Range/Units 11:14 Sodium 136 L (137-145) mmol/L Potassium 3.7 (3.5-5.1) mmol/L Chloride 104 (98-107) mmol/L Carbon Dioxide 21 L (22-30) mmol/L BUN 10 (7-17) mg/dL Creatinine 0.71 (0.52-1.04) mg/dL Glucose 102 H (74-99) mg/dL Calcium 9.1 (8.4-10.2) mg/dL Calcium panel 07/09/19 Range/Units 11:14 Calcium 9.1 (8.4-10.2) mg/dL Pituitary panel 07/09/19 Range/Units 11:14 Sodium 136 L (137-145) mmol/L Potassium 3.7 (3.5-5.1) mmol/L Chloride 104 (98-107) mmol/L Carbon Dioxide 21 L (22-30) mmol/L BUN 10 (7-17) mg/dL Creatinine 0.71 (0.52-1.04) mg/dL Glucose 102 H (74-99) mg/dL Calcium 9.1 (8.4-10.2) mg/dL Adrenal panel 07/09/19 Range/Units 11:14 Sodium 136 L (137-145) mmol/L Potassium 3.7 (3.5-5.1) mmol/L Chloride 104 (98-107) mmol/L Carbon Dioxide 21 L (22-30) mmol/L BUN 10 (7-17) mg/dL Creatinine 0.71 (0.52-1.04) mg/dL Glucose 102 H (74-99) mg/dL Calcium 9.1 (8.4-10.2) mg/dL Assessment and Plan Assessment: Acute appendicitis Questionable pyelonephritis Heterogeneous appearance of the uterus Plan: Laparoscopic appendectomy possible open was discussed with the patient risks benefits alternatives including risks of bleeding infection damage surrounding tissue need for further operation need for conversion to open were all discussed the patient I also discussed with the patient that this case was discussed with her gynecology her pelvis will be examined laparoscopically if there is any abnormalities 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 Patient was agreeable with this. She'll be kept nothing by mouth started on IV antibiotics and proceed with laparoscopic appendectomy.
[2019-07-09] MEDS ORDERED: HYDROmorphone 0.5 MG/0.5 ML SYRINGE IVP ONE (18:54)
[2019-07-09] MEDS ORDERED: LIDOCAINE 1% INJ 10MG/ML (20 ML MDV) ONE (19:32)
[2019-07-09] MEDS ORDERED: ROCURONIUM BROMIDE 10 MG/ML 5 ML VIAL IV ONE (19:32)
[2019-07-09] MEDS ORDERED: MIDAZOLAM 2 MG/2 ML VIAL ONE (19:32)
[2019-07-09] MEDS ORDERED: fentaNYL (PF) 50 MCG/ML 2 ML AMP ONE (19:32)
[2019-07-09] MEDS ORDERED: HEPARIN SODIUM,PORCINE 5,000 UNIT/ML 1 ML VIAL ONE (19:32)
[2019-07-09] MEDS ORDERED: KETOROLAC 30 MG/ML 1 ML VIAL ONE (19:32)
[2019-07-09] MEDS ORDERED: PROPOFOL 10 MG/ML 50 ML VIAL IV ONE (19:32)
[2019-07-09] MEDS ORDERED: BUPIVACAIN-EPI 0.25%-1:200,000 30 ML VIAL SQ ONE (19:58)
[2019-07-09] MEDS ORDERED: HYDROmorphone 0.5 MG/0.5 ML SYRINGE IVP PRN (20:30)
--- NOTE | 2019-07-09 20:30 | P.OP ---
Date of Procedure: 07/09/19 Preoperative Diagnosis: Acute appendicitis Postoperative Diagnosis: Acute appendicitis Procedure(s) Performed: Diagnostic laparoscopy with Laparoscopic appendectomy Anesthesia: FABIOLA Surgeon: Emmanuel Ramsey Estimated Blood Loss (ml): 2 Condition: stable Disposition: PACU Description of Procedure: Patient was brought into the operative suite remained in the supine position underwent general endotracheal anesthesia per Department of anesthesia prepped and draped in usual sterile fashion timeout performed correct patient correct procedure correct site was verified. A 5 mm Visiport was used to enter the abdomen at palmers point, two fingerbreadths below the costal margin on the left side in the midclavicular line. The abdomen was insufflated no injuries were noted. A suprapubic port was placed under direct visualization this is a 5 mm port and a 12 mm port was placed in the left lower quadrant. Both were placed under direct visualization. The patient was placed in steep Trendelenburg and the and tire abdomen was inspected. In the pelvis there was some scarring from her previous surgeries however there was no overt signs of pathology in the pelvis that would necessitate an intraoperative gynecologic consultation. Attention was then turned to the appendix that was found at the base of the cecum. The appendix was noted to have some injection there was no purulence or perforation noted it was also dilated. Using a LigaSure device the mesial appendix was taken down the appendix was stapled across at the base of the cecum using a 60 mm Endo ZACHARY purple load stapler. The appendix was removed through a Endo Catch bag through the 12 mm port site. Hemostasis was noted at the staple site. The abdomen was once again inspected no other abnormalities are noted. The 12 mm port site fascia was closed with an 0 Vicryl with the aid of a Eric- Hipolito suture passer. The abdomen was desufflated and skin was closed with 4- 0 Monocryl subcuticular sutures and skin glue. Patient tolerated the procedure well there are no apparent complications
[2019-07-09] MEDS ORDERED: HYDROmorphone 1 MG/ML 1 ML SYRINGE IVP ONE ×2 (20:37→20:42)
[2019-07-09] MEDS ORDERED: LACTATED RINGERS 1,000 ML IV ONE (20:42)
[2019-07-09] MEDS: LACTATED RINGERS 1,000 ML IV SCH (21:35)
[2019-07-09] MEDS: ONDANSETRON 4 MG/2 ML VIAL IVP PRN (23:54)
[2019-07-09] MEDS: HEPARIN SODIUM,PORCINE 5,000 UNIT/ML 1 ML VIAL SQ SCH (23:54)
[2019-07-10] MEDS: HYDROcodone/APAP 5-325MG 1 EACH TAB PO PRN (04:27)
[2019-07-10 06:43] LABS: Anisocytosis Slight; HCT 29.7 % (34.0-46.0); Hypochromasia Moderate; MCH 26.2 pg (25.0-35.0); MCV 84.6 fL (80.0-100.0); Platelet Count 159 k/uL (150-450); RBC 3.51 m/uL (3.80-5.40); RDW 18.4 % (11.5-15.5); WBC 7.2 k/uL (3.8-10.6)
[2019-07-10 06:45] LABS: African American GFR (CKD) >90 (>60 ml/min/1.73 sqM); Anion Gap 5 mmol/L; Blood Urea Nitrogen 8 mg/dL (7-17); Calcium 8.1 mg/dL (8.4-10.2); Carbon Dioxide 23 mmol/L (22-30); Chloride 104 mmol/L (98-107); Glucose 95 mg/dL (74-99); Non-African American GFR(CKD) >90 (>60 ml/min/1.73 sqM); Potassium 3.9 mmol/L (3.5-5.1); Sodium 132 mmol/L (137-145)
[2019-07-10 06:49] LABS: HGB 9.2 gm/dL (11.4-16.0)
[2019-07-10] MEDS: ACETAMINOPHEN TAB 325 MG TAB PO PRN ×3 (07:11→21:05)
[2019-07-10] MEDS: PANTOPRAZOLE 40 MG/10 ML VIAL IVP SCH (08:10)
[2019-07-10] MEDS: ONDANSETRON 4 MG/2 ML VIAL IVP PRN ×3 (08:10→22:55)
[2019-07-10] MEDS: HEPARIN SODIUM,PORCINE 5,000 UNIT/ML 1 ML VIAL SQ SCH ×3 (08:10→22:55)
[2019-07-10] MEDS: SODIUM CHLORIDE 0.9% 1,000 ML IV SCH ×2 (08:11→12:00)
--- NOTE | 2019-07-10 09:15 | P.CON ---
Consult Note - . Consult date: 07/10/19 Assessment/Plan:: This is a 38-year-old white female 3 para 3004 last menstrual period 06/24/2019. Patient presented to the emergency center yesterday with intermittent fever 4 days, and right lower quadrant pain of 36 hours duration. This is accompanied by nausea no vomiting. She had shakes and chills at home with a fever elevation. She presented to the ER at which time a computed tomography scan was performed and was consistent with acute appendicitis. Computed tomography scan also commented on a small amount of fluid in the pelvis, along with a heterogeneous change of the uterine texture. 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 Consideration was made for pelvic ultrasound to better delineate the pelvic structures, however after discussion with Dr. thompson our plan was for direct visualization of the organs which Dr. thompson performed. His judgment was consistent with normal-appearing pelvic organs, and therefore sonogram was not deemed appropriate. Please see his dictated operative note for details. Patient's past medical history is negative. Past surgical history section with tubal ligation for twins in 2009, D&C for retained products of conception 2005, both per Dr. Vargas. Current medications none. Social history patient is single, she is a nonsmoker, she denies alcohol or drug use. 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 She denies history of GC, chlamydia, HSV or HPV infections. Last Pap smear was 10 years ago, patient has never had a mammogram. Family history significant for patient's mother having lupus. On exam patient is 5 foot 7 inches, 140 pounds, vital signs this morning are stable and patient is afebrile. She is postoperative and therefore a full examination is not performed of the abdomen or pelvis secondary to fresh in cisions. The HEENT examination is negative, no thyromegaly, no cervical lymphadenopathy. Breasts are negative bilaterally. Chest is clear in all [place] anteriorly and posteriorly with no rales or rhonchi. Cardiac exam reveals regular rate and rhythm with no murmur click or rub. Abdomen is soft and nontender, well-healed small incisions consistent with laparoscopic appendectomy. There is mild tenderness, no rebound or guarding. Extremities reveal no edema. She has good peripheral pulses. On admission WBCs 9.0, hemoglobin 12.1, hCG negative. Impression: Status post laparoscopic appendectomy, with inspection of the pelvic organs revealing no pathology. CT findings nonspecific no obvious gynecologic abnormalities on history noted this morning. Plan: Patient would need to follow-up in the office for her full FRAMING MILL OPERATOR examination including Pap smear, and order slip for mammogram baseline. 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 Thank you for the consultation.
[2019-07-10] MEDS: LACTATED RINGERS 1,000 ML IV SCH ×2 (11:06→16:41)
--- NOTE | 2019-07-10 11:22 | P.PN ---
Subjective Progress Note Date: 07/10/19 Patient states that she is feeling somewhat better today, still complaining of nausea and feeling hot and flushed. She states that her RLQ pain is improved. Mostly complaining of pain near her incision sites Objective - Vital Signs Vital signs: Vital Signs Temp 100.1 F H 07/10/19 05:30 Pulse 102 H 07/10/19 05:30 Resp 16 07/10/19 05:30 BP 117/74 07/10/19 05:30 Pulse Ox 98 07/10/19 05:30 Intake & Output 07/09/19 07/10/19 07/10/19 18:59 06:59 18:59 Intake Total 0 1100 Output Total 27 Balance 0 1073 Weight 63.503 kg Intake: IV 0 900 Intake, IV Titration 200 Amount Lactated Ringers 1,000 ml 200 @ 100 mls/hr IV .Q10H [facility] Rx#:[id number] Output: Urine 25 Estimated Blood Loss 2 Other: Voiding Method Toilet # Voids 1 - Constitutional General appearance: Present: cooperative - Respiratory Details: nonlabored - Cardiovascular Rhythm: regular - Gastrointestinal Gastrointestinal Comment(s): S/NT/ incisional TTP no RRG - Psychiatric Psychiatric: Present: A&O x's 3 - Labs CBC & Chem 7: 07/10/19 06:04 07/10/19 06:04 Labs: Abnormal Lab Results - Last 24 Hours (Table) 07/09/19 07/09/19 07/09/19 Range/Units 11:14 11:14 11:14 RBC (3.80-5.40) m/uL Hgb (11.4-16.0) gm/dL Hct (34.0-46.0) % RDW 18.3 H (11.5-15.5) % Lymphocytes # 0.8 L (1.0-4.8) k/uL Sodium 136 L (137-145) mmol/L Carbon Dioxide 21 L (22-30) mmol/L Glucose 102 H (74-99) mg/dL Calcium (8.4-10.2) mg/dL Urine Appearance Cloudy H (Clear) Ur Specific [place] (1.001-1.035) Urine Protein 1+ H (Negative) Urine Ketones 1+ H (Negative) Urine Blood Moderate H (Negative) Ur Leukocyte Esterase Moderate H (Negative) Urine RBC 56 H (0-5) /hpf Urine WBC 54 H (0-5) /hpf Ur Squamous Epith Cells 29 H (0-4) /hpf Urine Bacteria Rare H (None) /hpf Urine Mucus Moderate H (None) /hpf 07/09/19 07/10/19 07/10/19 Range/Units 13:18 06:04 06:04 RBC 3.51 L (3.80-5.40) m/uL Hgb 9.2 L D (11.4-16.0) gm/dL Hct 29.7 L (34.0-46.0) % RDW 18.4 H (11.5-15.5) % Lymphocytes # (1.0-4.8) k/uL Sodium 132 L (137-145) mmol/L Carbon Dioxide (22-30) mmol/L Glucose (74-99) mg/dL Calcium 8.1 L (8.4-10.2) mg/dL Urine Appearance (Clear) Ur Specific [place] >1.050 H (1.001-1.035) Urine Protein 1+ H (Negative) Urine Ketones (Negative) Urine Blood Trace H (Negative) Ur Leukocyte Esterase (Negative) Urine RBC (0-5) /hpf Urine WBC (0-5) /hpf Ur Squamous Epith Cells 7 H (0-4) /hpf Urine Bacteria (None) /hpf Urine Mucus Rare H (None) /hpf Assessment and Plan Assessment: S/P lap appendectomy Plan: Patient does have some resolution of her abdominal pain. Patient had a very early appearing appendicitis during surgery. If she continues to have fevers and does not clinically improve consider possibility of pyleonephritis which was [place] spected based on initial CT and UA or another medical process.
[2019-07-10] MEDS: PIPERACILLIN-TAZOBACTAM 3.375 GM in SODIUM CHLORIDE 0.9% 100 ML IVPB SCH ×2 (12:00→19:22)
[2019-07-10 14:15] LABS: Anisocytosis Slight; HCT 31.7 % (34.0-46.0); HGB 10.1 gm/dL (11.4-16.0); Hypochromasia Moderate; MCH 26.5 pg (25.0-35.0); MCHC 31.8 g/dL (31.0-37.0); MCV 83.6 fL (80.0-100.0); Mean Platelet Volume 7.8; Platelet Count 170 k/uL (150-450); RDW 17.9 % (11.5-15.5)
--- NOTE | 2019-07-10 16:05 | P.PN ---
Subjective 38-year-old the pleasant female came in with complaints of fever going on for about 4-5 days patient denied any cough shortness of breath. Patient starting having abdominal pain in the right lower quadrant and periorbital area which started today along with nausea vomiting. Patient's pain is severe in nature which improved now. Patient denied any dysuria denied any pain in the flanks. Patient had a computed tomography scan of the abdomen which showed fecalith well with appendicitis along with some changes consistent pyelonephritis in the right side. Patient urine is abnormal but contaminated urine sample patient doesn't have any CVA tenderness. Patient was started on Zosyn for surgery was the called the recommending surgical intervention in addition to general medicine. 07/10/2019 Patient is status post laparoscopic appendectomy direct visualization during laparotomy did not show any significant abnormality in the uterine structures and gynecology evaluated the patient as well. Patient is complaining of her significant abdominal pain in the surgical site area and soreness in the surgical site area patient had fever earlier today, urine cultures are pending patient remains on Zosyn. Adding Toradol to morphine and she is not tolerating morphine very well at this time Constitutional: Denied any fatigue denied any fever. Cardio vascular: denied any chest pain, palpitations Gastrointestinal as mentioned in the interval history Pulmonary: Denied any shortness of breath cough Neurologic denied any new focal deficits All inpatient medications were reviewed and appropriate changes in these medications as dictated in the interval history and assessment and plan. Objective - Vital Signs Vital signs: Vital Signs Temp 98.2 F 07/10/19 15:53 Pulse 91 07/10/19 11:55 Resp 17 07/10/19 11:55 BP 131/81 07/10/19 11:55 Pulse Ox 100 07/10/19 11:55 Intake & Output 07/09/19 07/10/19 07/10/19 18:59 06:59 18:59 Intake Total 0 1100 900 Output Total 27 Balance 0 1073 900 Weight 63.503 kg Intake: IV 0 900 Intake, IV Titration 200 900 Amount Lactated Ringers 1,000 ml 200 @ 100 mls/hr IV .Q10H [facility] Rx#:[id number] Piperacillin-Tazobactam 3 100 .375 gm In Sodium Chloride 0.9% 100 ml @ 25 mls/hr IVPB Q8H [facility] Rx#: [id number] Sodium Chloride 0.9% 1, 800 000 ml @ 100 mls/hr IV . Q10H [facility] Rx#:[id number] Output: Urine 25 Estimated Blood Loss 2 Other: Voiding Method Toilet # Voids 1 - Exam PHYSICAL EXAMINATION: GENERAL: The patient is alert and oriented x3, not in any acute distress. Well developed, well nourished. HEENT: Pupils are round and equally reacting to light. EOMI. No scleral icterus. No conjunctival pallor. Normocephalic, atraumatic. No pharyngeal erythema. No thyromegaly. CARDIOVASCULAR: S1 and S2 present. No murmurs, rubs, or gallops. PULMONARY: Chest is clear to auscultation, no wheezing or crackles. ABDOMEN: Bowel sounds present surgical site area appears to be clean MUSCULOSKELETAL: No joint swelling or deformity. EXTREMITIES: No cyanosis, clubbing, or pedal edema. NEUROLOGICAL: Gross neurological examination did not reveal any focal deficits. SKIN: No rashes. - Labs CBC & Chem 7: 07/10/19 14:00 07/10/19 06:04 Labs: Abnormal Lab Results - Last 24 Hours (Table) 07/10/19 07/10/19 07/10/19 Range/Units 06:04 06:04 14:00 RBC 3.51 L (3.80-5.40) m/uL Hgb 9.2 L D 10.1 L (11.4-16.0) gm/dL Hct 29.7 L 31.7 L (34.0-46.0) % RDW 18.4 H 17.9 H (11.5-15.5) % Sodium 132 L (137-145) mmol/L Calcium 8.1 L (8.4-10.2) mg/dL Assessment and Plan Plan: -Acute appendicitis and is post appendectomy, urine cultures are pending possibility of pyelonephritis cannot be completely ruled out at this time continue Zosyn -Sepsis probably secondary to appendicitis and as mentioned above UTI cannot be completely ruled out and pyelonephritis cannot be ruled out. Zosyn will be continued -Tachycardia secondary to sepsis as mentioned above resolved at this time cont inue with IV fluids -Incidental findings of possible or adenomyosis, or fibroid Uterus, no cysts fin dings were found during laparotomy gynecology evaluated the patient patient will follow with gynecology as an outpatient -Hemangioma of the liver which are pretty common in women of this age no further intervention at this time -DVT prophylaxis: Early ambulation GI prophylaxis Protonix
[2019-07-10] MEDS: KETOROLAC 30 MG/ML 1 ML VIAL IVP PRN ×2 (16:48→23:14)
[2019-07-10 21:17] VITALS: RESP 16
[2019-07-11] MEDS: HYDROcodone/APAP 5-325MG 1 EACH TAB PO PRN ×2 (02:28→14:08)
[2019-07-11] MEDS: PIPERACILLIN-TAZOBACTAM 3.375 GM in SODIUM CHLORIDE 0.9% 100 ML IVPB SCH ×2 (03:24→11:41)
[2019-07-11] MEDS: LACTATED RINGERS 1,000 ML IV SCH (03:34)
[2019-07-11] MEDS: SODIUM CHLORIDE 0.9% 1,000 ML IV SCH ×4 (07:49→11:41)
[2019-07-11] MEDS: PANTOPRAZOLE 40 MG/10 ML VIAL IVP SCH (07:51)
[2019-07-11] MEDS: HEPARIN SODIUM,PORCINE 5,000 UNIT/ML 1 ML VIAL SQ SCH (07:51)
[2019-07-11] MEDS: KETOROLAC 30 MG/ML 1 ML VIAL IVP PRN (07:51)
--- NOTE | 2019-07-11 09:02 | P.PN ---
Subjective Progress Note Date: 07/11/19 Patient stable overnight. Pain and symptoms significantly improved. Tolerating liquids Objective - Vital Signs Vital signs: Vital Signs Temp 98.5 F 07/11/19 04:15 Pulse 81 07/11/19 04:15 Resp 16 07/11/19 04:15 BP 120/79 07/11/19 04:15 Pulse Ox 98 07/11/19 04:15 Intake & Output 07/10/19 07/11/19 07/11/19 18:59 06:59 18:59 Intake Total 900 1272 Balance 900 1272 Intake: Intake, IV Titration 900 800 Amount Piperacillin-Tazobactam 3 100 100 .375 gm In Sodium Chloride 0.9% 100 ml @ 25 mls/hr IVPB Q8H [facility] Rx#: [id number] Sodium Chloride 0.9% 1, 800 700 000 ml @ 100 mls/hr IV . Q10H [facility] Rx#:[id number] Oral 472 Other: Voiding Method Toilet # Voids 2 - Constitutional General appearance: Present: cooperative - Respiratory Details: nonlabored - Cardiovascular Rhythm: regular - Gastrointestinal Gastrointestinal Comment(s): S/NT/ND incisions CDI - Labs CBC & Chem 7: 07/10/19 14:00 07/10/19 06:04 Labs: Abnormal Lab Results - Last 24 Hours (Table) 07/10/19 Range/Units 14:00 Hgb 10.1 L (11.4-16.0) gm/dL Hct 31.7 L (34.0-46.0) % RDW 17.9 H (11.5-15.5) % Assessment and Plan Assessment: S/P lap appendectomy Plan: Stable from surgical standpoint. Follow up in two weeks
[2019-07-11 12:06] VITALS: BP 130/87; PULSE 74; TEMP 98.4
--- NOTE | 2019-07-11 15:54 | P.DS ---
Providers Date of admission: 07/09/19 12:34 Attending physician: Kristie Plata Consults: 07/09/19 12:13 Consult Physician Stat Consulting Provider: Emmanuel Ramsey Consult Reason/Comments: acute appy Do you want consulting provider notified?: Already Contacted 07/09/19 14:29 Consult Physician Routine Consulting Provider: Pao Alvarez Consult Reason/Comments: abnormal CT Do you want consulting provider notified?: Yes Primary care physician: [facility] Course: 38-year-old the pleasant female came in with complaints of fever going on for about 4-5 days patient denied any cough shortness of breath. Patient starting having abdominal pain in the right lower quadrant and periorbital area which started today along with nausea vomiting. Patient's pain is severe in nature which improved now. Patient denied any dysuria denied any pain in the flanks. Patient had a computed tomography scan of the abdomen which showed fecalith well with appendicitis along with some changes consistent pyelonephritis in the right side. Patient urine is abnormal but contaminated urine sample patient doesn't have any CVA tenderness. Patient was started on Zosyn for surgery was the called the recommending surgical intervention in addition to general medicine. 07/10/2019 Patient is status post laparoscopic appendectomy direct visualization during laparotomy did not show any significant abnormality in the uterine structures and gynecology evaluated the patient as well. Patient is complaining of her significant abdominal pain in the surgical site area and soreness in the surgical site area patient had fever earlier today, urine cultures are pending patient remains on Zosyn. Adding Toradol to morphine and she is not tolerating morphine very well at this time 07/11/2019 Patient is clinically doing well patient did have bowel movement eating well will be discharged today as I cannot completely rule out a UTI patient was discharged on family's of antibiotic completing treatment of septic total 7 days for possible pyelonephritis. PHYSICAL EXAMINATION: GENERAL: The patient is alert and oriented x3, not in any acute distress. Well developed, well nourished. HEENT: Pupils are round and equally reacting to light. EOMI. No scleral icterus. No conjunctival pallor. Normocephalic, atraumatic. No pharyngeal erythema. No thyromegaly. CARDIOVASCULAR: S1 and S2 present. No murmurs, rubs, or gallops. PULMONARY: Chest is clear to auscultation, no wheezing or crackles. ABDOMEN: Soft, nontender, nondistended, normoactive bowel sounds. No palpable organomegaly. MUSCULOSKELETAL: No joint swelling or deformity. EXTREMITIES: No cyanosis, clubbing, or pedal edema. NEUROLOGICAL: Gross neurological examination did not reveal any focal deficits. SKIN: No rashes. Assessment and Plan Plan: -Acute appendicitis and is post appendectomy, urine cultures are still pending possibility of pyelonephritis cannot be completely ruled out because of which I'm discharging the patient on Augmentin she is afebrile for more than 24 hours -Sepsis probably secondary to appendicitis and as mentioned above UTI cannot be completely ruled out and pyelonephritis cannot be ruled out. -Tachycardia secondary to sepsis resolved -Incidental findings of possible or adenomyosis, or fibroid Uterus, no cysts findings were found during laparotomy gynecology evaluated the patient patient will follow with gynecology as an outpatient -Hemangioma of the liver which are pretty common in women of this age no further intervention at this time Patient Condition at Discharge: Fair Plan - Discharge Summary New Discharge Prescriptions: New HYDROcodone/APAP 5-325MG [[place] 5-325] 1 tab PO Q6HR PRN 3 Days #12 tab PRN Reason: Pain Amoxic-Pot Clav 875-125Mg [Augmentin 875-125] 1 tab PO Q12HR 5 Days #10 tab Discharge Medication List Amoxic-Pot Clav 875-125Mg [Augmentin 875-125] 1 tab PO Q12HR 5 Days #10 tab 07/11/19 [Rx] HYDROcodone/APAP 5-325MG [[place] 5-325] 1 tab PO Q6HR PRN 3 Days #12 tab 07/11/19 [Rx] Follow up Appointment(s)/Referral(s): Emmanuel Ramsey DO [Doctor of Osteopathic Medicine] - 2 Weeks Erik Kiser III, MD [Primary Care Provider] - 3 Days Patient Instructions/Handouts: Hydrocodone/Acetaminophen (By mouth), Amoxicillin/Clavulanate Potassium (By mouth), Urinary Tract Infection in Women (DC), Laparoscopic Appendectomy (DC) Activity/Diet/Wound Care/Special Instructions: Patient may shower no baths No lifting over 15lbs for 3 weeks Discharge Disposition: HOME SELF-CARE
== END 2019-07-11 16:11 | disposition home or self-care (01) ==
LOC: EC 10:56 → 5NMEDONC 12:34
PROVIDERS: ADMIT Hospitalist; ATTEND Hospitalist
DX: K35.80 Unspecified acute appendicitis (principal); A41.89 Other specified sepsis; D18.03 Hemangioma of intra-abdominal structures; K38.1 Appendicular concretions; R93.49 Abnormal radiologic findings on diagnostic imaging of other urinary organs; F32.9 Major depressive disorder, single episode, unspecified; F17.200 Nicotine dependence, unspecified, uncomplicated; Z79.899 Other long term (current) drug therapy; Z20.828 Contact with and (suspected) exposure to other viral communicable diseases; Z98.891 History of uterine scar from previous surgery; Z98.51 Tubal ligation status; Z84.89 Family history of other specified conditions
CPT/HCPCS: 44970; 96376; 96374; 96375; 99285; 36415; 88304; 80048 ×2; 83605; 85025; 85027; 85610; 85730; 81001; 81025; 87635; 74177; G0378 ×3; J2543 ×3; J2250; J2270; J1644 ×3; J2405 ×2; J2001; J3010; J1885 ×3; J1170 ×2; J2704; C9113 ×3; Q9967

== ENCOUNTER 2023-07-15 09:05 | Emergency (ER) | payer OTHER ==
[2023-07-15 09:50] VITALS: RESP 18; TEMP 98.2
[2023-07-15] MEDS: SODIUM CHLORIDE 0.9% 500 ML 500 ML IV STA (10:19)
[2023-07-15] MEDS: LORazepam 2 MG/ML INJ IV STA (10:19)
[2023-07-15] MEDS: SODIUM CHLORIDE 0.9% 1,000 ML IV STA (10:19)
--- NOTE | 2023-07-15 10:30 | ED ---
Chest Pain HPI - General Chief Complaint: Chest Pain Stated Complaint: tachy Time Seen by Provider: 07/15/23 09:23 Source: patient, RN notes reviewed Mode of arrival: wheelchair Limitations: no limitations - History of Present Illness Initial Comments: 42-year-old female presents emergency department chief complaint of palpitations, chest comfort. She states that awoke her this morning. Patient states she feels very anxious feels like she is having a panic attack. Patient states she had an issue like this few years ago had a full workup so unrelated to her anxiety. She denies any new medications denies drug use denies alcohol abuse. She states she just feels like her heart is racing but no significant chest pain. - Related Data Home Medications Medication Instructions Recorded Confirmed Acetaminophen Tab [Tylenol Tab] 1,000 mg PO Q6HR PRN 07/15/23 07/15/23 Previous Rx's Medication Instructions Recorded LORazepam [Ativan] 0.5 mg PO TID 3 Days #9 tab 07/15/23 Allergies Allergy/AdvReac Type Severity Reaction Status Date / Time No Known Allergies Allergy Verified 07/15/23 10:28 Review of Systems ROS Statement: Those systems with pertinent positive or pertinent negative responses have been documented in the HPI. ROS Other: All systems not noted in ROS Statement are negative. EKG Findings - EKG Comments: EKG Findings:: EKG performed at 9: 21 sinus tachycardia rate of 121 QRS 133 QRS 103 QT/QTc 338/410 - EKG Results: EKG: interpreted by JACKIE Past Medical History Past Medical History: No Reported History History of Any Multi-Drug Resistant Organisms: None Reported Past Surgical History: Section, Tubal Ligation Additional Past Surgical History / Comment(s): D&C. Past Anesthesia/Blood Transfusion Reactions: No Reported Reaction Past Psychological History: Depression Past Alcohol Use History: Occasional Past Drug Use History: None Reported - Past Family History Mother Additional Family Medical History / Comment(s): Lupus General Exam Limitations: no limitations General appearance: alert, in no apparent distress Head exam: Present: atraumatic, normocephalic, normal inspection Eye exam: Present: normal appearance, PERRL, EOMI. Absent: scleral icterus, conjunctival injection, periorbital swelling ENT exam: Present: normal exam, normal oropharynx, mucous membranes moist Neck exam: Present: normal inspection, full ROM. Absent: tenderness, meningismus, lymphadenopathy Respiratory exam: Present: normal lung sounds bilaterally. Absent: respiratory distress, wheezes, rales, rhonchi, stridor Cardiovascular Exam: Present: regular rate, normal rhythm, normal heart sounds. Absent: systolic murmur, diastolic murmur, rubs, gallop, clicks GI/Abdominal exam: Present: soft, normal bowel sounds. Absent: distended, tenderness, guarding, rebound, rigid Neurological exam: Present: alert, oriented X3 Skin exam: Present: warm, dry, intact, normal color. Absent: rash Course Vital Signs 07/15/23 07/15/23 09:11 11:50 Temperature 98.2 F Pulse Rate 120 H 109 H Respiratory 18 18 Rate Blood Pressure 152/85 128/80 O2 Sat by Pulse 100 100 Oximetry Chest Pain MDM - MDM Was pt. sent in by a medical professional or institution ([facility]ESS[facility] Gustafson, [facility] [facility], urgent care, hospital, or care home...) When possible be specific @ -No Did you speak to anyone other than the patient for history (EMS, parent, family, police, friend...)? What history was obtained from this source @ -No Did you review nursing and triage notes (agree or disagree)? Why? @ -I reviewed and agree with nursing and triage notes Were old charts reviewed (outside hosp., previous admission, EMS record, old EKG, old radiological studies, urgent care reports/EKG's, care home records)? Report findings @ -No old charts were reviewed Differential Diagnosis (chest pain, altered mental status, abdominal pain women, abdominal pain men, vaginal bleeding, weakness, fever, dyspnea, syncope, headache, dizziness, GI bleed, back pain, seizure, CVA, palpatations, mental health, musculoskeletal)? @ -Differential Palpitations Ventricular arrhythmias, atrial arrhythmias, myocardial infarction, anemia, thyrotoxicosis, electrolyte imbalance, hypokalemia, pulmonary embolism, pulmonary disease, drugs, alcohol, anxiety, stress.... This is not meant to be an all-inclusive list. EKG interpreted by me (3pts min.). @ -As above X-rays interpreted by me (1pt min.). @ -Chest x-ray shows no acute cardiopulmonary process CT interpreted by me (1pt min.). @ -None done U/S interpreted by me (1pt. min.). @ -None done What testing was considered but not performed or refused? (CT, X-rays, U/S, labs)? Why? @ -None What meds were considered but not given or refused? Why? @ -None Did you discuss the management of the patient with other professionals (professionals i.e. , PA, PLANT GUARD, lab, RT, psych nurse, social media community manager, criminal justice teacher, teacher, special police officer, case briefer)? Give summary @ -No Was smoking cessation discussed for >3mins.? @ -No Was critical care preformed (if so, how long)? @ -No Were there social determinants of health that impacted care today? How? (Homelessness, low income, unemployed, alcoholism, drug addiction, transportation, low edu. Level, literacy, decrease access to med. care, assisted, rehab)? @ -No Was there de-escalation of care discussed even if they declined (Discuss DNR or withdrawal of care, Hospice)? DNR status @ -No What co-morbidities impacted this encounter? (DM, HTN, Smoking, COPD, CAD, Cancer, CVA, ARF, Chemo, Hep., AIDS, mental health diagnosis, sleep apnea, morbid obesity)? @ -Anxiety Was patient admitted / discharged? Hospital course, mention meds given and route, prescriptions, significant lab abnormalities, going to OR and other pertinent info. @ -Discharge patient feels great improved after adding IV fluids laboratory studies unremarkable. Undiagnosed new problem with uncertain prognosis? @ -No Drug Therapy requiring intensive monitoring for toxicity (Heparin, Nitro, Insulin, Cardizem)? @ -No Were any procedures done? @ -No Diagnosis/symptom? @ -Anxiety, palpitations Acute, or Chronic, or Acute on Chronic? @ -Acute Uncomplicated (without systemic symptoms) or Complicated (systemic symptoms)? @ -Uncomplicated Side effects of treatment? @ -No Exacerbation, Progression, or Severe Exacerbation? @ -No Poses a threat to life or bodily function? How? (Chest pain, [place], [place], pneumonia, PE, COPD, DKA, ARF, appy, cholecystitis, CVA, Diverticulitis, Homicidal, S uicidal, threat to staff... and all critical care pts) @ -No Disposition Clinical Impression: Tachycardia, Anemia, Anxiety Disposition: HOME SELF-CARE Condition: Stable Instructions (If sedation given, give patient instructions): Chest Pain (ED) Additional Instructions: Take iron supplement as directed. Please follow-up with your [facility] HELPER . Please return to the Emergency Department if symptoms worsen or any other concerns. Prescriptions: LORazepam [Ativan] 0.5 mg PO TID 3 Days #9 tab Is patient prescribed a controlled substance at d/c from ED?: No Referrals: None,Stated [Primary Care Provider] - 1-2 days Time of Disposition: 11:36
[2023-07-15 10:47] LABS: Partial Thromboplastin Time 23.5 sec (22.0-30.0); Prothrombin Time 10.6 sec (10.0-12.5)
[2023-07-15 10:49] LABS: ALT 19 U/L (4-34); AST 36 U/L (14-36); African American GFR (CKD) >90 (>60 ml/min/1.73 sqM); Alkaline Phosphatase 79 U/L (38-126); Anion Gap 15 mmol/L; Blood Urea Nitrogen 10 mg/dL (7-17); Carbon Dioxide 17 mmol/L (22-30); Chloride 109 mmol/L (98-107); Glucose 100 mg/dL (74-99); Magnesium 1.9 mg/dL (1.6-2.3); Non-African American GFR(CKD) >90 (>60 ml/min/1.73 sqM); Potassium 3.6 mmol/L (3.5-5.1); Sodium 141 mmol/L (137-145); Total Bilirubin 0.6 mg/dL (0.2-1.3); Total Protein 8.8 g/dL (6.3-8.2)
--- NOTE | 2023-07-15 10:53 | XR ---
EXAMINATION TYPE: XR chest 2V DATE OF EXAM: 07/15/2023 COMPARISON: 07/09/2018 TECHNIQUE: PA and lateral views submitted. HISTORY: Tachycardia FINDINGS: The lungs are clear and there is no pneumothorax, pleural effusion, or focal pneumonia. Heart size normal and no overt failure. Curvature of the spine. IMPRESSION: 1. No acute process.
[2023-07-15 10:54] LABS: Anisocytosis Slight; Basophils % (A) 0 %; Eosinophils # (A) 0.1 k/uL (0-0.7); Eosinophils % (A) 2 %; HCT 31.9 % (34.0-46.0); HGB 8.5 gm/dL (11.4-16.0); Hypochromasia Marked; Lymphocytes # (A) 1.4 k/uL (1.0-4.8); Lymphocytes % (A) 23 %; MCH 17.4 pg (25.0-35.0); MCHC 26.6 g/dL (31.0-37.0); MCV 65.5 fL (80.0-100.0); Mean Platelet Volume 7.3; Microcytosis Marked; Monocytes # (A) 0.4 k/uL (0-1.0); Monocytes % (A) 7 %; Neutrophils # (A) 3.9 k/uL (1.3-7.7); Neutrophils % (A) 67 %; Platelet Count 442 k/uL (150-450); RBC 4.87 m/uL (3.80-5.40); WBC 5.9 k/uL (3.8-10.6)
[2023-07-15 12:10] VITALS: BP 128/80; PULSE 109
== END 2023-07-15 11:52 | disposition home or self-care (01) ==
LOC: EC 09:05
DX: D64.9 Anemia, unspecified (principal); F41.9 Anxiety disorder, unspecified; R00.0 Tachycardia, unspecified
CPT/HCPCS: 36415; 85379; 80053; 84443; 83735; 84484; 85025; 85610; 85730; 71046; 99285; 96374; 96361; J2060